=== PATIENT | female | born 1990 | race African-American/Black ===

== ENCOUNTER 2019-07-16 15:55 | Emergency (ER) | payer OTHER, SELFPAY ==
--- NOTE | ~2019-07-16 | US_ITS ---
EXAMINATION: US OB <=14 wk fetus w TV EXAM DATE: 07/16/2019 17:14 INDICATION: Vaginal bleeding. . First trimester. TECHNIQUE: Pelvic obstetrical transabdominal and transvaginal sonogram was performed by a technologi . There are multiple grayscale and Doppler images available for interpretation. There are no constanza ier studies of this gestation for comparison. FINDINGS: Uterus measures 8.9 x 5.5 x 6.7 cm. There is intrauterine gestation sac. pole with heart rate confirmed at 120 beats per minute. The crown-rump length of 8 mm corresponds to estimated gestational age by ultrasound of 6 weeks 5 days . Yolk sac is identified. There is hypoechoic sub chorionic hemorrhage measuring 2.1 x 0.7 x 2.4 cm. Ovaries are unremarkable. IMPRESSION: Early live intrauterine gestation age by ultrasound 6 weeks 5 days with small to moderate -sized subchorionic hemorrhage. Reviewed, dictated and finalized at location A. IMPRESSION: Early live intrauterine gestation age by ultrasound 6 weeks 5 days with small to moderate-sized subchorionic hemorrhage.
[2019-07-16 16:01] VITALS: BP 151/104; PULSE 92; RESP 18; TEMP 36.1; O2SAT 100
[2019-07-16 16:50] LABS: Basophils Percent Auto 0.3 % (0.2-1.2); Eosinophils Percent Auto 0.2 % (0-4.4); Hematocrit 36.3 % (37.0-47.0); Immature Granulocyte Absolute 0.03 K/mm3 (0.00-0.031); Immature Granulocyte Percent A 0.3 % (0-0.5); Lymphocytes Absolute Auto 2.21 K/mm3 (0.9-3.2); Lymphocytes Percent Auto 21.4 % (18.3-44.2); Mean Corpuscular HGB Conc 30.3 g/dl (32-36); Mean Corpuscular Hemoglobin 23.8 pg (26-34); Mean Corpuscular Volume 78.4 fl (80-100); Mean Platelet Volume 10.9 fl (7.4-10.4); Monocytes Absolute Auto 0.5 K/mm3 (0.1-0.6); Monocytes Percent Auto 5.1 % (2.6-8.5); Neutrophils Absolute Auto 7.5 K/mm3 (1.3-6.7); Neutrophils Percent Auto 72.7 % (45.5-73.1); Platelet Count Result 448 k/mm3 (150-375); Red Blood Count 4.63 M/mm3 (4.2-5.4); Red Cell Distribution Width 18.2 % (11.5-14.5); White Blood Count 10.3 K/mm3 (4.5-10.0)
[2019-07-16 17:35] VITALS: BP 135/92; PULSE 68; RESP 20; O2SAT 98
[2019-07-16 17:38] VITALS: BP 141/89; PULSE 85
[2019-07-16 17:39] VITALS: BP 136/89; PULSE 65
[2019-07-16 17:42] VITALS: BP 154/91; PULSE 100
--- NOTE | 2019-07-16 17:59 | ED.PREGNANCY ---
HPI - General Chief complaint: Vaginal Bleeding Stated complaint: poss miscariage Time Seen by Provider: 07/16/19 16:05 Source: patient Mode of arrival: ambulatory Limitations: no limitations History of Present Illness HPI Narrative: Patient presents with chief complaint of vaginal bleeding that began on Tuesday. Patient states that she had a D&C done by [facility] on April 23 and had a test come back positive on June 08. Patient states that since the she did not have a menstrual period. Patient states on Tuesday she began having pelvic cramping and vaginal bleeding. She reports having heavy bleeding on Tuesday and going to at bedtime at bedtime to be evaluated but due to the long wait she was told to follow-up in urgent care. Patient states that she was seen in urgent care and told to be evaluated by [facility]IA[facility]ATIC T[facility]ER OPERATOR or at the ER. Patient states that her vaginal bleeding is minimal and dark brown in color on today. She denies cramping or pain at this time. Patient denies having confirmation of intrauterine . Patient denies fever, chills, nausea, vomiting, diarrhea, urinary symptoms or vaginal discharge. Patient reports having 8 pregnancies 5 resulting in live births and 2 abortions. Patient denies any chronic medical conditions or medications. Related Data Allergies Allergy/AdvReac Type Severity Reaction Status Date / Time No Known Allergies Allergy Unknown Verified 07/16/19 15:56 Review of Systems Review of Systems: Narrative: CONSTITUTIONAL: Denies fever, chills, or sweats. EYES: Denies visual changes, redness, or discharge. ENT: Denies rhinorrhea, congestion, sore throat, or otalgia. CARDIOVASCULAR: Denies chest pain, palpitations, or edema. RESPIRATORY: Denies cough or dyspnea. GASTROINTESTINAL: Denies abdominal pain, nausea, vomiting, or diarrhea. GENITOURINARY: Reports vaginal bleeding denies dysuria or hematuria. SKIN: Denies rash or itching. MUSCULOSKELETAL: Denies back pain, joint pain, or myalgia. NEUROLOGIC: Denies headache, numbness, dizziness, or weakness. PSYCHIATRIC: Denies anxiety or depression. PMFSH Social History Social History Gender identity (if verbalized by the patient): Female Exam Narrative: Exam Narrative: GENERAL: Well-appearing, well-nourished, and in no acute distress. HEAD: Normocephalic, atraumatic. EYES: PERRLA and EOMI. ENT: Nares clear, no rhinorrhea or epistaxis. Mucous membranes moist. Oropharynx without tonsillar hypertrophy exudate or other lesions. Bilateral TMs pearly love nonbulging NECK: Supple. No adenopathy or masses. No carotid bruits or JVD CHEST: Clear to auscultation. No respiratory distress. No wheezes rales or rhonchi HEART: Regular rate and rhythm. No murmur heard. Normal peripheral pulses. ABDOMEN: Soft, nontender, nondistended, normal active bowel sounds. GENITOURINARY: Scant amount of dark brownish fluid in vaginal canal. No large blood clots noted. Cervix is soft and not abnormally dilated. No tissues noted coming from cervix. EXTREMITIES: Normal range of motion. No edema. SKIN: Warm, dry, no rash. NEURO: No focal deficits. Alert and oriented x3. PSYCH: Normal mood and affect. Course Vital Signs Vital signs: Vital Signs Temperature 96.9 F L 07/16/19 16:01 Pulse Rate 92 07/16/19 16:01 Respiratory Rate 18 07/16/19 16:01 Blood Pressure 151/104 H 07/16/19 16:01 Pulse Oximetry 100 07/16/19 16:01 Temperature 96.9 F L 07/16/19 16:01 Pulse Rate 72 07/16/19 18:46 Respiratory Rate 18 07/16/19 18:46 Blood Pressure 132/86 07/16/19 18:46 Pulse Oximetry 98 07/16/19 18:46 MDM - OB/Uterine Contractions MDM Narrative Medical decision making narrative: Patient has a confirmatory uterine with subchorionic hemorrhage. Patient will be placed on pelvic rest and given Dr. Cullen information to follow-up with an office. Patient will need repeat hCG and follow-up ultrasound d
[2019-07-16 18:46] VITALS: BP 132/86; PULSE 72; RESP 18; O2SAT 98
== END 2019-07-16 18:47 | disposition home or self-care (01) ==
PROVIDERS: Emergency Provider Emergency Medicine
DX: O20.8 Other hemorrhage in early pregnancy (principal); Z3A.01 Less than 8 weeks gestation of pregnancy
CPT/HCPCS: 36415; 76801; 76817; 84702; 85025; 99284

== ENCOUNTER 2020-08-06 19:24 | Emergency (ER) | payer OTHER, SELFPAY ==
[2020-08-06 19:33] VITALS: BP 136/83; PULSE 91; RESP 20; TEMP 37.2; O2SAT 99
--- NOTE | 2020-08-06 19:42 | ED.SKABFB ---
HPI - Skin/Abscess/Foreign Bdy General Chief complaint: Skin/Abscess/Foreign Body Stated complaint: rash Time Seen by Provider: 08/06/20 19:42 Source: patient, RN notes reviewed and old records reviewed Mode of arrival: ambulatory Limitations: no limitations History of Present Illness HPI narrative: 30-year-old female who presents to [facility] with complaints of eczema rash exacerbation for one week to bilateral inner forearm area especially at antecubital areas with itching and some crusting and plaque looking skin areas. Patient states that she has had long history of eczema and needs the Triamcinolone cream for her flare. Patient also states some areas on her forehead near hair line but cautioned patient that Triamcinolone should not be used on face, only emollients or low dose hydrocortisone cream sparingly. Patient denies any fevers chills or sweats or any other ill symptoms. MD complaint: rash Related Data Allergies Allergy/AdvReac Type Severity Reaction Status Date / Time No Known Allergies Allergy Unknown Verified 07/16/19 15:56 Review of Systems Review of Systems: Narrative: CONSTITUTIONAL: Denies fever, chills, or sweats. EYES: Denies visual changes, redness, or discharge. ENT: Denies rhinorrhea, congestion, sore throat, or otalgia. CARDIOVASCULAR: Denies chest pain, palpitations, or edema. RESPIRATORY: Denies cough or dyspnea. GASTROINTESTINAL: Denies abdominal pain, nausea, vomiting, or diarrhea. GENITOURINARY: Denies dysuria or hematuria. SKIN: Positive for rash or itching. MUSCULOSKELETAL: Denies back pain, joint pain, or myalgia. NEUROLOGIC: Denies headache, numbness, or weakness. PSYCHIATRIC: Denies anxiety or depression. All systems reviewed & are unremarkable except as noted in HPI and below PMFSH Surgical History Surgical History (Updated 08/09/20 @ 14:48 by Bhargavi Masters NP) Previous section Family History Family History (Updated 08/09/20 @ 14:47 by Bhargavi Masters NP) Mother Hypertension Social History Social History Gender identity (if verbalized by the patient): Female Comments At time of signature, agree with nursing past medical, surgical, social and family history. There is no relevant family history pertinent to the presenting complaint Exam Narrative: Exam Narrative: GENERAL: Well-appearing, well-nourished, and in no acute distress. HEAD: Normocephalic, atraumatic. EYES: PERRLA and EOMI. ENT: Nares clear, no rhinorrhea or epistaxis. Mucous membranes moist. NECK: Supple.no lymphadenopathy CHEST: Clear to auscultation. No respiratory distress.SAO2 99% on room air HEART: Regular rate and rhythm. No murmur heard. Normal peripheral pulses. ABDOMEN: Soft, nontender, nondistended, normal active bowel sounds. EXTREMITIES: Normal range of motion. No edema. SKIN: Warm, dry, red excoriated skin on bilateral forearm especially to antecubital areas which is pruritic, dry crusty areas on forehead also near hairline. NEURO: No focal deficits. Alert and oriented x3.c HENMT: Mouth: Yes dry mucous membranes Course Vital Signs Vital signs: Vital Signs Temperature 37.2 C 08/06/20 19:33 Pulse Rate 91 08/06/20 19:33 Respiratory Rate 20 08/06/20 19:33 Blood Pressure 136/83 08/06/20 19:33 Pulse Oximetry 99 08/06/20 19:33 Temperature 37.2 C 08/06/20 19:33 Pulse Rate 91 08/06/20 19:33 Respiratory Rate 20 08/06/20 19:33 Blood Pressure 136/83 08/06/20 19:33 Pulse Oximetry 99 08/06/20 19:33 MDM - Skin/Abscess/Foreign Bdy Differential Diagnosis Differential diagnosis: Likely abscess of skin or subcutaneous tissue, urticaria, allergic reaction to drug, cellulitis, eczema and contact dermatitis Medical Records Attestation: I reviewed the patient's medical records. Critical Care Time Critical Care Time Critical Care Time: No Discha
== END 2020-08-06 20:01 | disposition home or self-care (01) ==
PROVIDERS: Emergency Provider Registered Nurse
DX: L30.9 Dermatitis, unspecified (principal)
CPT/HCPCS: 99213; G0463

== ENCOUNTER 2021-02-25 16:32 | Emergency (ER) | payer OTHER, SELFPAY ==
[2021-02-25 16:49] VITALS: BP 153/105; PULSE 88; RESP 16; TEMP 37.3; O2SAT 99
--- NOTE | 2021-02-25 17:56 | ED.FEMALEGU ---
HPI - Female Genitourinary General Chief complaint: CONSTRUCTION FLAGGER Stated complaint: rash /uti Source: patient and RN notes reviewed Mode of arrival: ambulatory History of Present Illness HPI Narrative: This is a 31-year-old female presented to urgent care with complaints of Beige vaginal discharge that she has had for couple of days. Patient denies any sexual intercourse notes that her boyfriend is incarcerated. She also has emphysema to her bilateral arms that she has ran out of medication we will renew her medication for her asthma. The patient denies SOB, CP, palpitation, extremity numbness, lightheadedness, dizziness, constipation, diarrhea, chills, or fever. Related Data Allergies Allergy/AdvReac Type Severity Reaction Status Date / Time No Known Allergies Allergy Unknown Verified 02/25/21 16:51 Review of Systems Review of Systems: A 14 organ system Review of Systems was performed and pertinent positives included in the HPI, otherwise remaining ROS is negative. [facility] Surgical History Surgical History (Updated 08/09/20 @ 14:48 by Bhargavi Masters NP) Previous section Family History Family History (Updated 08/09/20 @ 14:47 by Bhargavi Masters NP) Mother Hypertension Social History Social History Gender identity (if verbalized by the patient): Female Exam Narrative: GENERAL: This is a well-nourished, well-developed patient, in no apparent distress. HEAD: normocephalic, atraumatic. EYES: PERRL. Sclera clear/white. Vision is grossly intact. EARS: External ears normal, auditory canals clear and without drainage, TMs normal without perforation. Hearing grossly intact. NOSE: External nose normal with no obvious nasal discharge, nares without redness, no rhinorrhea. THROAT: Mucous membranes moist, posterior pharynx clear. NECK: Neck supple, non-tender without lymphadenopathy, masses or thyromegaly. CARDIOVASCULAR: Regular rate and rhythm without murmurs, gallops, or rubs. RESPIRATORY: Clear to auscultation. Breath sounds equal bilaterally. No wheezes, rales, or rhonchi. GASTROINTESTINAL: Abdomen soft, non-tender, nondistended. Bowel sounds are active. No hepato-splenomegaly, or palpable masses. No guarding. SKIN: warm, intact with no suspicious lesions or rash, good texture and turgor. NEURO: awake, alert, and oriented to person, place and time. There were no obvious focal neurologic abnormalities. Steady gait EXTREMITIES: Normal range of motion. No edema. No calf tenderness. Negative Homans sign bilaterally. BACK: Nontender without deformity or crepitance. No flank tenderness. Course Course Emergency Course: Will prescribe Flagyl vaginal insertion x5 days and Diflucan along with triamcinolone Vital Signs Vital signs: Vital Signs Temperature 99.2 F 02/25/21 16:49 Pulse Rate 88 02/25/21 16:49 Respiratory Rate 16 02/25/21 16:49 Blood Pressure 153/105 H 02/25/21 16:49 Pulse Oximetry 99 02/25/21 16:49 Temperature 99.2 F 02/25/21 16:49 Pulse Rate 88 02/25/21 16:49 Respiratory Rate 16 02/25/21 16:49 Blood Pressure 153/105 H 02/25/21 16:49 Pulse Oximetry 99 02/25/21 16:49 MDM - Female Genitourinary Differential Diagnosis Differential diagnosis: Likely bacterial vaginosis, vaginitis and other (Eczema) Discharge Plan Discharge Clinical Impression: Bacterial vaginal infection, Acute eczema Patient Disposition: Home, Self-Care Condition: Stable Instructions: Antibiotic Form, Bacterial Vaginosis (ED), Eczema (ED) Additional Instructions: Wash the area with soap and cool water only. Avoid scratching when possible to prevent worsening of the condition and disruption of the skin that could lead to bacterial infection To relieve itching, place a cool washcloth or some ice over the area that itches, rather than scratching Follow up with primary care provider or seek ER if you have trouble breathing, become hoarse, or
== END 2021-02-25 17:58 | disposition home or self-care (01) ==
PROVIDERS: Emergency Provider Nurse Practitioner
DX: N76.0 Acute vaginitis (principal); L30.9 Dermatitis, unspecified
CPT/HCPCS: 99213; G0463

== ENCOUNTER 2022-09-24 17:40 | Emergency (ER) | payer OTHER, SELFPAY ==
--- NOTE | 2022-09-24 17:56 | ED.URI ---
HPI - URI/Sore Throat General Chief Complaint: Upper Respiratory Infection Stated Complaint: Cough Time Seen by Provider: 09/24/22 17:42 Source: patient Mode of arrival: ambulatory Limitations: no limitations History of Present Illness HPI Narrative: Patient is a 32-year-old female that presents with cough since December with mild congestion. Patient states she has had different cough medicine and steroids with no relief. Denies any fever, chills, or ear pain. Reports cough is worse at night and makes her restless. Has tried multiple different [id number] treatments as well with no relief. Related Data Allergies Allergy/AdvReac Type Severity Reaction Status Date / Time No Known Allergies Allergy Unknown Verified 09/24/22 17:59 Review of Systems Review of Systems: All systems reviewed & are unremarkable except as noted in HPI and below Constitutional: Constitutional: Denies body ache(s), Denies chills, Denies fatigue, Denies fever(s), Denies headache(s), Denies malaise and Denies weakness Eyes: Eyes: Denies blurry vision, Denies itchy eyes and Denies loss of vision ENT: Denies otalgia, Denies headache(s), Reports nasal congestion, Denies sinus pain and Denies sore throat Cardiovascular: Cardiovascular: Denies chest pain, Denies irregular heart rhythm and Denies dyspnea Respiratory: Respiratory: Reports cough and Denies dyspnea Gastrointestinal: Gastrointestinal: Denies abdominal pain, Denies diarrhea, Denies nausea and Denies vomiting Musculoskeletal: Musculoskeletal: Denies back pain, Denies myalgias and Denies arthralgias Integumentary/Breasts: Skin/Breast: Denies pruritus and Denies rash Neurologic: Denies headache(s), Denies loss of vision and Denies weakness Psychiatric: Psychiatric: Reports no additional psychiatric complaints Endocrine: Endocrine: Denies fatigue Allergic/Immunologic: Allergic/Immunologic: Denies itchy eyes PMFSH Surgical History Surgical History (Updated 08/09/20 @ 14:48 by Bhargavi Masters NP) Previous section Family History Family History (Updated 08/09/20 @ 14:47 by Bhargavi Masters NP) Mother Hypertension Social History Social History Gender identity (if verbalized by the patient): Female Comments At time of signature, agree with nursing past medical, surgical, social and family history. There is no relevant family history pertinent to the presenting complaint. Exam Const: General: cooperative, healthy appearing, comfortable, no acute distress and well nourished Nutritional Appearance: well nourished Orientation/consciousness: patient oriented x3 Limitations: no limitations HENMT: Head: normal to inspection, normocephalic and atraumatic Ears: hearing grossly normal bilaterally, external ears normal, TM's normal bilaterally, EAC's normal and no periauricular adenopathy Face/Nose/Sinus: Normal external nose present, Normal nasal mucous membranes and turbinates present, normal facial exam, sinuses nontender and face symmetric Face and sinus: normal facial exam, sinuses nontender and face symmetric Mouth: Yes Normal oral and palatal mucosa present, Yes lip normal, Yes tongue normal, Yes Normal salivary glands and ducts present, Yes oropharynx normal and Yes moist mucous membranes Teeth and gingiva: dentition normal Throat: posterior oropharynx normal, tonsils normal and uvula midline Eyes: General: appearance normal, both eyes and all related structures Alignment and Position: alignment normal and position normal Periorbital: periorbital findings normal Eyelids: eyelids normal Pupils: Equal, round and reactive pupils present Neck: Neck: normal visual inspection, full ROM, no lymphadenopathy and supple Chest: Chest palpation & inspection: normal inspection of the chest and normal palpation of entire chest wall Resp: Effort & Inspection: normal respiratory effort and able to speak in complete sent
[2022-09-24 18:26] VITALS: BP 153/104; PULSE 90; RESP 16; TEMP 36.8; O2SAT 100
== END 2022-09-24 19:15 | disposition home or self-care (01) ==
PROVIDERS: Emergency Provider Nurse Practitioner Family
DX: J06.9 Acute upper respiratory infection, unspecified (principal)
CPT/HCPCS: 99213; G0463

== ENCOUNTER 2023-05-03 16:57 | Emergency (ER) | payer BC, OTHER, SELFPAY ==
[2023-05-03 17:08] VITALS: BP 154/115; PULSE 97; RESP 16; TEMP 37.2; O2SAT 99
[2023-05-03 17:11] VITALS: BP 154/115; PULSE 97; RESP 16; TEMP 37.2; O2SAT 99
--- NOTE | 2023-05-03 17:24 | ED.FEMALEGU ---
HPI - Female Genitourinary General Chief complaint: Urogenital-Female Stated complaint: Vaginal Problems Time Seen by Provider: 05/03/23 17:24 Source: patient and RN notes reviewed Mode of arrival: ambulatory Limitations: no limitations History of Present Illness HPI Narrative: 33 y/o female presented for c/o brown vaginal discharge with foul odor x1 week. Reports getting BV in the past and is concerned for the same. Denies sexual activity for several months. denies itching, lesions, hematuria, nausea, vomiting, abdominal pain, flank pain, constipation, diarrhea, fevers or chills. LMP 04/17/23. Related Data Allergies Allergy/AdvReac Type Severity Reaction Status Date / Time No Known Allergies Allergy Unknown Verified 05/03/23 17:02 Review of Systems Review of Systems: CONSTITUTIONAL: Denies body aches, fever, chills, or sweats. CARDIOVASCULAR: Denies chest pain, palpitations, or edema. RESPIRATORY: Denies cough or dyspnea. GASTROINTESTINAL: Denies abdominal pain, nausea, vomiting, or diarrhea. GENITOURINARY: reports vaginal discharge denies dysuria, frequency, urgency, hematuria, flank pain SKIN: Denies rash, itching, or wounds. MUSCULOSKELETAL: Denies back pain or myalgia. [facility] Surgical History Surgical History Previous section Family History Family History Mother Hypertension Social History Social History Gender identity (if verbalized by the patient): Female Comments At time of signature, I have reviewed and agree with nursing past medical, surgical, social and family history unless otherwise noted. Please see nursing chart for further information. There is no relevant family history pertinent to the presenting complaint Exam Narrative: GENERAL: Well-appearing and in no acute distress. ENT: Mucous membranes pink and moist. NECK: Normal AROM. Supple. CHEST: No respiratory distress. Clear to auscultation. HEART: Regular rate and rhythm. ABDOMEN: Soft, nontender, nondistended, normal active bowel sounds. No CVA tenderness : Pt showed Brown discharge to the inside of undergarments. Vagina: normal vaginal introitus, pink with large amount white thin discharge, malodorous; no bleeding, foreign body, laceration or lesions. No swelling. Nontender. Cervix: normal appearance of the cervix, closed Chaperoned by Alexandra GOODWIN SKIN: Warm, dry, no rash. NEURO: No focal deficits. Alert and oriented x3. Gait steady. PSYCH: Normal affect. Course Course Emergency Course: Patient is aware of diagnosis, understands and agrees to treatment plan. Anticipatory guidance given. Patient agrees to follow-up as directed and is aware of reasons to seek care at the emergency department. Portions of this record may have been created with voice recognition software Level of Care: Express Care Visit Vital Signs Vital signs: Vital Signs Temperature 98.9 F 05/03/23 17:08 Pulse Rate 97 05/03/23 17:08 Respiratory Rate 16 05/03/23 17:08 Blood Pressure 154/115 H 05/03/23 17:08 Pulse Oximetry 99 05/03/23 17:08 Oxygen Delivery Room Air 05/03/23 17:08 Temperature 98.9 F 05/03/23 17:11 Pulse Rate 97 05/03/23 17:11 Respiratory Rate 16 05/03/23 17:11 Blood Pressure 154/115 H 05/03/23 17:11 Pulse Oximetry 99 05/03/23 17:11 Oxygen Delivery Room Air 05/03/23 17:11 Reviewed MDM - Female Genitourinary MDM Narrative Medical decision making narrative: Discussed physical exam findings. Will treat for BV given pt's hx, Rx metronidazole sent. Advised supportive measures and signs/symptoms to go to the ER. Pt is appropriate for outpt treatment and f/u. Differential Diagnosis Differential diagnosis: Likely urinary tract infection, bacterial vaginosis, trichomoniasis, cervicitis, vaginitis and cystitis Discharg
[2023-05-03 21:25] LABS: Trichomonas Vag PCR NOT DETECTED (NOT DETECTE)
[2023-05-03 21:48] LABS: Chlamydia trachomatis NOT DETECTED (NOT DETECTE); Neisseria gonorrhoeae PCR NOT DETECTED (NOT DETECTE)
[2023-05-07 09:56] LABS: Bacterial Vaginosis Positive (Negative)
== END 2023-05-03 17:55 | disposition home or self-care (01) ==
PROVIDERS: Emergency Provider Nurse Practitioner Family
DX: N89.8 Other specified noninflammatory disorders of vagina (principal)
CPT/HCPCS: 81513; 87070; 87491; 87591; 87661; 99214; G0463

== ENCOUNTER 2023-06-16 18:48 | Emergency (ER) | payer BC, OTHER, SELFPAY ==
--- NOTE | 2023-06-16 18:50 | ED.GENADULT ---
HPI - General Adult General Chief complaint: Upper Respiratory Infection Stated complaint: cough Time Seen by Provider: 06/16/23 19:04 Source: patient, RN notes reviewed and old records reviewed Mode of arrival: ambulatory Limitations: no limitations History of Present Illness HPI narrative: 33-year-old female presents to the [facility] with a cough x1 week. No treatment prior to arrival Patient denies any other symptoms. Patient reports that she has an appointment with her primary care provider, has discussed her elevated blood pressure at past Onset (ago): week(s) (1) Treatments prior to arrival: none Related Data Home Medications Medication Instructions Recorded Confirmed phentermine 37.5 mg tablet mg 06/16/23 topiramate 25 mg tablet mg 06/16/23 Allergies Allergy/AdvReac Type Severity Reaction Status Date / Time No Known Allergies Allergy Unknown Verified 05/03/23 17:02 Review of Systems Review of Systems: All systems reviewed & are unremarkable except as noted in HPI and below Constitutional: Constitutional: Reports no additional constitutional complaints Eyes: Eyes: Reports no additional eye complaints ENT: Reports system reviewed and no additional complaints, except as documented Cardiovascular: Cardiovascular: Reports no additional cardiovascular complaints, Denies chest pain and Denies dyspnea Respiratory: Respiratory: Reports as per HPI, Denies chest congestion, Reports cough and Denies dyspnea Gastrointestinal: Gastrointestinal: Reports no additional gastrointestinal complaints, Denies abdominal pain, Denies nausea and Denies vomiting Musculoskeletal: Musculoskeletal: Reports no additional musculoskeletal complaints Integumentary/Breasts: Skin/Breast: Reports system reviewed and no additional complaints, except as docu Neurologic: Reports system reviewed and no additional complaints, except as documented Psychiatric: Psychiatric: Reports no additional psychiatric complaints Allergic/Immunologic: Allergic/Immunologic: Reports no additional allergic/immunologic complaints [facility] Surgical History Surgical History Previous section Family History Family History Mother Hypertension Social History Social History Gender identity (if verbalized by the patient): Female Comments At the time of my signature, I reviewed and agree with the nursing past medical, surgical, social, and family history. There is no relevant family history pertinent to the patient complaint. Exam Const: General: cooperative, healthy appearing, comfortable, no acute distress, well developed, alert and well nourished Nutritional Appearance: well nourished and obese Orientation/consciousness: patient oriented x3 Limitations: no limitations HENMT: Head: normal to inspection Ears: hearing grossly normal bilaterally, external ears normal, TM's normal bilaterally, EAC's normal, mastoids normal and no periauricular adenopathy Face/Nose/Sinus: Normal external nose present, Normal nares present, Normal nasal mucous membranes and turbinates present, normal facial exam and face symmetric Face and sinus: normal facial exam and face symmetric Mouth: Yes Normal oral and palatal mucosa present, Yes lip normal and Yes moist mucous membranes Throat: posterior oropharynx normal, tonsils normal, uvula midline and no uvular edema Eyes: General: appearance normal, both eyes and all related structures Alignment and Position: alignment normal Periorbital: periorbital findings normal Pupils: Equal, round and reactive pupils present EOM: EOMs intact bilaterally Neck: Neck: normal visual inspection, full ROM, no lymphadenopathy and no meningeal signs Chest: Chest palpation & inspection: normal inspection of the chest Resp: Effort & Inspection: normal respiratory effor
[2023-06-16 19:04] VITALS: BP 153/103; PULSE 86; RESP 16; TEMP 36.6; O2SAT 100
== END 2023-06-16 19:28 | disposition home or self-care (01) ==
PROVIDERS: Emergency Provider Nurse Practitioner
DX: R05.9 Cough, unspecified (principal); R09.82 Postnasal drip
CPT/HCPCS: 99211; G0463

== ENCOUNTER 2023-11-16 11:41 | Emergency (ER) | payer BC, OTHER, SELFPAY ==
[2023-11-16 11:54] VITALS: BP 133/96; PULSE 87; RESP 16; TEMP 37.3; O2SAT 99
--- NOTE | 2023-11-16 11:54 | ED.FEMALEGU ---
HPI - Female Genitourinary General Chief complaint: Urogenital-Female Stated complaint: Vaginal order, spot on back of head Time Seen by Provider: 11/16/23 11:58 Source: patient Mode of arrival: ambulatory Limitations: no limitations History of Present Illness HPI Narrative: Lizzy is a 33-year-old female patient presenting to the clinic today with complaints of vaginal odor and discharge that is been occurring x1 week. She reports that discharge is brown in color. She is not sexually active and has no concern for any sexually transmitted infections. Was seen back in April and tested positive for BV and states that her symptoms are quite similar. States she has recently changed soaps. Also reports she had her hair braided recently and over the last week she has a spot of alopecia to the back of her head. She noticed this when she removed the parish. Related Data Home Medications Medication Instructions Recorded Confirmed phentermine 37.5 mg tablet 37.5 mg PO DAILY 06/16/23 11/16/23 topiramate 25 mg tablet 25 mg PO DAILY 06/16/23 11/16/23 Allergies Allergy/AdvReac Type Severity Reaction Status Date / Time No Known Allergies Allergy Unknown Verified 11/16/23 11:44 Review of Systems Review of Systems: Pertinent positives per HPI. Patient denies any fever, chills, rash, headache, visual changes, dizziness, cough, runny nose, sore throat, shortness of breath, chest pain, palpitations, nausea, vomiting, diarrhea, constipation, abdominal pain, or any urinary issues. PMFSH Surgical History Surgical History Previous section Family History Family History Mother Hypertension Social History Social History Gender identity (if verbalized by the patient): Female Comments At the time of my signature, I reviewed and agree with the nursing past medical, surgical, social, and family history. There is no relevant family history pertinent to the patient complaint. Exam Narrative: General: Well-developed, well nourished, in no apparent distress. Head: Normocephalic, atraumatic.-circular alopecia area to the posterior scalp-area approximately 3 cm in size with scaling/crusting Cardio: Regular rate and rhythm, s1 and s2 normal, no murmur appreciated. Resp: Clear to auscultation bilaterally, no rhonchi, rales, wheezing or rubs. Abdomen: Soft, pliable, bowel sounds present in all quadrants, non-tender to palpation, no organomegly, no CVAT tenderness. : Deferred-patient self swabbed for BV Course Course Emergency Course: Portions of this record may have been created with voice recognition software. Level of Care: Express Care Visit Vital Signs Vital signs: Vital Signs Temperature 37.3 C 11/16/23 11:54 Pulse Rate 87 11/16/23 11:54 Respiratory Rate 16 11/16/23 11:54 Blood Pressure 133/96 H 11/16/23 11:54 Pulse Oximetry 99 11/16/23 11:54 Oxygen Delivery Room Air 11/16/23 11:54 Temperature 37.3 C 11/16/23 11:54 Pulse Rate 87 11/16/23 11:54 Respiratory Rate 16 11/16/23 11:54 Blood Pressure 133/96 H 11/16/23 11:54 Pulse Oximetry 99 11/16/23 11:54 Oxygen Delivery Room Air 11/16/23 11:54 Vital signs reviewed MDM - Female Genitourinary MDM Narrative Medical decision making narrative: At the time of visit patient is resting comfortably on the exam table. Patient appears to be nontoxic. Labs: Bacterial vaginosis swab sent to the lab Plan: Will treat patient for BV and give her prescription for Flagyl. Recommend follow-up with PCP to get liver function tests to start terbinafine for tinea capitis. Supportive measures were discussed with the patient and they voiced understanding discharge instructions and agrees to treatment plan. Return precautions reviewed Differential Diag
[2023-11-18 15:47] LABS: Bacterial Vaginosis NEGATIVE (NEGATIVE)
== END 2023-11-16 12:11 | disposition home or self-care (01) ==
PROVIDERS: Emergency Provider Nurse Practitioner Family
DX: N76.0 Acute vaginitis (principal); B35.0 Tinea barbae and tinea capitis
CPT/HCPCS: 81513; 99213; G0463